=== PATIENT | female | born 1950 | race Caucasian/White ===

== ENCOUNTER 2024-10-27 21:32 | Emergency (ER) | payer MEDICARE, SELFPAY ==
--- OUTSIDE RECORDS SUMMARY | 2024-10-27 21:34 | XMS_ITS | Clinical Summary ---
Author Organization [facility] Address [facility] [place] [address] Care Team Providers Care Insurance Account Assistant Name Role Phone Antoinette Salter DO Primary Care Provider Allergies Active Allergy Reactions Criticality Noted Date Comments Epinephrine 01/01/2007 changes heart beat Medications MULTIPLE VITAMIN ESSENTIAL ORAL TAB 1 tab daily ? 0 09/07/19 04 Active calcium-minerals -R2-B0-btevyrr 200 mg-200 unit -16 mcg tab Take by mouth. Act sandeep acetaminophen SR (Tylenol Arthritis Pain) 650 mg Extended-Release tablet Take 650 mg by mouth every 8 hours if needed. Max acetaminophen dose: 4000mg in 24 hrs. Active Biotin 1 mg tablet Take by mouth. Activ e glucosam-chondro itin-diet cb25 116-100 mg cap Take by mouth. Active atorvastatin (Lipitor) 40 mg tabletIndication s:Mixed dyslipidemia Take 1 Tablet (40 mg) by mouth at bedtime. 100 Tablet 3 06/05/19 25 Active Cpttk-4-XES-EPA- Fish Oil (Fish OiL) 1,200 (144-216) mg capsule Take by mouth. Activ e blood sugar diagnostic (Blood Glucose Test) stripIndications :Type 2 diabetes mellitus without complication, without long-term current use of insulin (HC) Test 1 times per day. Contour 100 Each 12 09/16/19 25 Active blood-glucose meterIndications :Type 2 diabetes mellitus without complication, without long-term current use of insulin (HC) Dispense meter covered by pts insurance. Contour 1 Each 09/14/19 25 Active blood sugar diagnostic (Blood Glucose Test) stripIndications :Type 2 diabetes mellitus without complication, without long-term current use of insulin (HC) Test 1 times per day. 100 Each 09/14/19 25 Active lancetsIndicatio ns:Type 2 diabetes mellitus without complication, without long-term current use of insulin (HC) As directed. Test 1 times per day. 100 Each 3 09/14/19 Active Active Problems Problem Noted Date Diagnosed Date Class 2 severe obesity with serious comorbidity and body mass index (BMI) of 36.0 to 36.9 in adult 06/08/2024 Overview (06/08/2024): Comorbidities: dyslipidemia, type 2 diabetes, osteoarthritis left knee Mixed dyslipidemia 06/04/2024 Overview (06/04/2024): ASCVD 10 year risk 13.2%. Type 2 diabetes mellitus wit hout complication, without long-term current use of insulin 06/04/2024 Closed compression fracture of first lumbar vert ebra 03/14/2024 Overview (03/14/2024): February 2024: found on X-ray, possibly from Oct 2023 fall, but not certain on timing of onset. Primary osteoarthritis of right knee 05/05/2019 Primary osteoarthritis of left knee 05/05/2019 ASCUS with positive high risk HPV cervical 06/29 Overview (06/19/2023): 06/2016 ASCUS/HPV+ (65 yo) 07/2016 Leary suggestive of CADEN I 09/2018 NIL/HPV+ 08/2020 UNS/HPV 16+, HPV 18 negative 09/2020 Leary: Suggestive of CADEN I 05/2023 NIL/HPV Negative Plan: Pap/HPV testing due in 3 years Hyperopia of both eyes with astigmatism and pres byopia 06/03/2016 Nuclear senile cataract of both eyes 06/03/2016 Anatomical narrow angle borderline glaucoma 03/31 Resolved Problems Problem Noted Date Diagnosed Date Resolved Date Tear of medial meniscus of r ight knee, current 10/07/2018 05/14/2023 Impaired fasting glucose 09/11/200712/2018 Obesity, unspecified 08/21/2007 024 Unspecified hypertrophic and atrophic condition of skin 04/10/2006 04/10/2006 Overview (04/10/2006): on heels HYPERTROPHIC HEEL SKIN 04/10/200610/07 PLANTAR FASCIITIS 11/28/2004 12/09/2008 FX CLOSED METATARSAL 04/22/2000 006 SINUSITIS, ACUTE MAXILLARY 0 08/03/2004 Encounters Date Type Department Care Team Description 10/11/2024 10:40 AM CDT Ancillary Procedure [facility] [address] [place] [address] 10/11/2024 Travel 10/08/2024 Travel 09/13/2024 Refill [facility] [address] [place] [address] Antoinette Salter DO Refill Request (blood sugar diagnostic (Blood Glucose Test) strip) from Last 3 Months Immunizations Immunization Administration Dates Next Due COVID-19 vaccine (Moderna Ronaldo rayo 50mcg/0.25mL) PF, MDV 08/29/2021 COVID-19 vaccine (Pfizer-BioNTech 30mcg/0.3mL) P F, MDV 06/27/2020,06/06/2020 Influenza, High-dose Quadrivalent Inactivated ,02/15/2020 Influenza, IIV4 01/21/2019 Influenza, Inactivated IIV3 (Age 65+ Years) Preserv Free 06/03/2024 Pneumococcal Poly,23-Valent (Pneumovax) 08/23/19 21 Pneumococcal conj 13-Valent (Prevnar 13) 019 Td, Preservative Free (age >= 7 Years) 6 Tdap 07/09/2016 Family History Medical History Relation Name Comments No Known Problems Brother Fredis Cancer Father Bone Heart Disease Father [place] - passed aw ay 74 No Known Problems Half-Sister Kim Cancer-breast Maternal Aunt Diabetes Maternal Grandfather Parkinsonism Maternal Grandmother COPD Mother Cataracts Mother Diabetes Mother Glaucoma Mother Heart Disease Paternal Grandfather Cancer-ovarian Paternal Grandmother Parkinsonism Sister Ruma No Known Problems Son Robbie Relation Name Status Comments Brother Fredis Alive Father Half-Sister Kim Alive Maternal Aunt Maternal Grandfather Maternal Grandmother Mother Paternal Grandfather Paternal Grandmother Sister Ruma Alive Son Robbie Alive Social History Tobacco Use Types Packs/Day Years Used Date Smoking Tobacco: Never Passive Smoke Exposure: Never Smokeless Tobacco: Never Tobacco Cessation:Counseling Given: Yes Alcohol Use Standard Drinks/Week Comments Yes 0 (1 standard drink = 0.6 oz pur e alcohol) A beer a week, maybe PHQ-2 Answer Date Recorded PHQ-2 TOTAL SCORE 0 06/03/2024 Social Connections Answer Date Recorded Do you often feel lonely or isolated from those around you? 0 06/10/2023 Financial Resource Strain Answer Date R ecorded Difficulty of Paying Living Expenses 3 06/10/2023 Difficulty of Paying Living Expenses Not on file 06/10/2023 Food Insecurity Answer Date Recorded Do you worry your food will run out before you are able to buy more? 1 06/10/2023 Transportation Needs Answer Date Record ed Does lack of transportation keep you from medica l appointments? 1 06/10/2023 Does lack of transportation keep you from work, meetings or getting things that you need? 1 06/10/2023 Housing Stability Answer Date Recorded What is your housing situation today? 1 06/10/2023 Interpersonal Safety Answer Date Record ed Are you being hit, kicked, p ushed or yelled at (see row info)? No 11/15/2023 Interpersonal Safety Abuse 12 - 18 Not on file 11/15/2023 Interpersonal Safety Ambulatory Vulnerability No t on file 11/15/2023 Utilities Answer Date Recorded Do you have trouble paying f or utilities (for example, heat, electricity, water, phone)? 1 06/10/2023 Comments No Sex and Gender Information Value Date Recorded Sex Assigned at Not on file Legal Sex Female 5:24 AM FINANCIAL REPORTING CONSULTANT Gender Identity Not on file Sexual Orientation Not on file Occupation Industry Job Start Date Job End Date Retired Not on file Not on file Not on file Obstetrics History Para Term AB IAB SAB Ectopic Multiple Livin g Live Births 1 1 0 1 0 0 0 0 0 1 Date Outcome GA Total Labor Labor/2nd/3rd Weight Sex Type Anes PTL Shira A1 A5 Name Clin 1968 33w0 d M Vag Robbie Last Filed Vital Signs Vital Sign Reading Time Taken Comments Blood Pressure 128/78 06/10/2024 1:03 PM CDT Pulse 66 06/10/2024 1:03 PM CDT Temperature 36.6 C (97.9 F) 11/15/2023 11:08 AM CDT Respiratory Rate 20 11/15/2023 11:08 AM CDT Oxygen Saturation 95% 06/10/2024 1:03 PM CDT Inhaled Oxygen Concentration - - Weight 96.2 kg (212 lb 1.6 oz) 06/10/2024 1:03 P M CDT Height 161.9 cm (5' 3.75) 06/03/2024 10:[address] Body Mass Index 36.69 06/03/2024 10:24 AM FINANCIAL REPORTING CONSULTANT Plan of Treatment Health Maintenance Due Date Last Done Comments Zoster (shingles) series for age 50+ (1 of 2) 2002 RSV vaccine for adults or (1 - Risk 60-74 years 1-dose series) 2012 COVID-19 vaccine series ( season) 2023 08/29/2021, 04/18/2021, 06/27/2020, Additional history exists Influenza Vaccine (#1) 2024 06/03/2024, 2018 BMI (ht and wt on same day) for age 18+ 06/03/2025 06/03/2024, 05/14/2023, 08/29/2021, Additional history exists Medicare Wellness for age 65+ 06/04/2025 06/03/2024, 05/14/2023, 08/29/2021, Additional history exists Depression screening for age 12+ 06/10/2025 06/10/2024, 06/04/2024, 06/03/2024, Additional history exists Mammogram for age 45-75 10/11/2025 10/12/19 25, 10/09/2023, 10/07/2022, Additional history exists Fecal testing sDNA-FIT (Cologuard) for age 45-75 06/10/2026 06/11/2023 Tetanus booster 07/09/2026 07/09/2016, 01/17/2006 Lipids for age 45-75 06/03/2029 06/03/2024, 05/14/2023, 05/14/2023, Additional history exists Pneumococcal series for age 50+ Completed 08/22/2020, 10/07/2018 Hepatitis C screening for age 18-79 Completed 05/14/2023 DEXA/DXA scan for age 65+ Completed 10/09/2023, 11/2020 Hepatitis B series for 19+ Aged Out N o longer eligible based on patient's age to complete this topic Procedures Procedure Name Priority Date/Time Associated Diagnosis Comments XR MAMMO KM BILAT SCREEN Routine 10/11/2024 10:45 AM CDT Visit for screening mammogram LIPID PANEL W REFLEX MEASURED LDL Routine 06/03/2024 11:07 AM FINANCIAL REPORTING CONSULTANT Hypertriglyceridemi a XR DXA BONE DENSITY 2 SITES AXIAL Routine 10/09/2023 9:47 AM CDT Menopause SDNA-FIT EXTERNAL (COLOGUARD) Routine 06/11/2023 8:00 AM CDT Screen for colon cancer ANTI HCV Routine 05/14/2023 9:47 AM FINANCIAL REPORTING CONSULTANT Need for hepatitis C screening test from Last 3 Months or Most Recently Relevant to Health Maintenance Results * XR MAMMO KM BILAT SCREEN (10/11/2024 10:45 AM CDT) Anatomical Region Laterality Modality BREASTS, Breast Left, Breast Right Bilateral Mammography Impressions 10/11/2024 3:50 PM CDT There is no radiographic evidence for malignancy. Recommend annual mammograms. MAMMOGRAM ASSESSMENT: ACR 1 Negative PATIENTS: You will also receive a letter with your examination results in an easy to read format. If you have questions about your results, please contact your referring provider. Narrative 10/11/2024 3:50 PM CDT For Patients: As a result of the Century Cures Act, medical imaging exams and procedure reports are released immediately into your electronic medical record. You may view this report before your referring provider. If you have questions, please contact your health care provider. XR MAMMO KM BILAT SCREEN [[id number]] CLINICAL HISTORY: This is an asymptomatic 73 y.o. patient. INDICATION FOR EXAM: Mammogram Screening. TECHNIQUE: CC and MLO views were obtained. This study was evaluated with the assistance of Computer-Aided Detection. Breast Tomosynthesis was used in interpretation. COMPARISON FILM: Yes 10/09/23 [facility] 10/07/22 [facility] FINDINGS: There are scattered areas of fibroglandular density. There are no dominant masses, suspicious micro calcifications or areas of architectural distortion. us Antoinette Abrams Joie DO MAMMO Final Resul t * (ABNORMAL) LIPID PANEL W REFLEX MEASURED LDL (06/03/2024 11:07 AM FINANCIAL REPORTING CONSULTANT) CHOLESTEROL, TOTAL 288(H) <200 mg/dL [facility] [place] HDL CHOLESTEROL 56 > OR = 50 mg/dL [facility] [place] TRIGLYCERIDES 358(H) <150 mg/dL [facility] [place] Comment: If a non-fasting specimen was collected, consider repeat triglyceride testing on a fasting specimen if clinically indicated. Goddard et al. J. of Clin. Lipidol. 2015;9:129-169. LDL-CHOLESTEROL 171(H) mg/dL (calc) [facility] [place] Comment: Reference range: <100 Desirable range <100 mg/dL for primary prevention; <70 mg/dL for patients with CHD or diabetic patients with > or = 2 CHD risk factors. LDL-C is now calculated using the Arpit-Cynthia calculation, which is a validated novel method providing better accuracy than the Friedewald equation in the estimation of LDL-C. Arpit BARRERA et al. SHELDON. 2013;310(19): 5585-6300 (http://education.[employer]/faq/XMD868) CHOL/HDLC RATIO 5.1(H) <5.0 (calc) [facility] [place] NON HDL CHOLESTEROL 232(H) <130 mg/dL (calc) [facility] [place] Comment: Non-HDL level > or = 220 is very high and may indicate genetic familial hypercholesterolemia (FH). Clinical assessment and measurement of blood lipid levels should be considered for all first-degree relatives of patients with an FH diagnosis. For patients with diabetes plus 1 major ASCVD risk factor, treating to a non-HDL-C goal of <100 mg/dL (LDL-C of <70 mg/dL) is considered a therapeutic option. Blood BLOOD SPECIMEN / Unknown 06/03/2024 11:07 AM FINANCIAL REPORTING CONSULTANT 06/03/2024 11:08 AM FINANCIAL REPORTING CONSULTANT Antoinette Sue Joie DO CHEMISTRY Final Resul t [facility] [address] [place] [address], [facility] [address] [place] [address] * (ABNORMAL) XR DXA BONE DENSITY 2 SITES AXIAL (10/09/2023 9:47 AM CDT) Anatomical Region Laterality Modality Spine, HIPS, HIPL, HIPR Other Addenda Addendum by Shameka Berman PA on 10/21/2023 9:57 AM CDT Impressions 10/14/2023 2:04 PM CDT Osteopenia. RECOMMENDATIONS: The National Osteoporosis Foundation recommends pharmacologic treatment for patients with T-scores of -2.5 or less, patients with prior history of fragility fractures, or patients with 10-year probability of greater than 3% at hips or greater than 20% of suffering major osteoporotic fractures. Recommend continued optimization of calcium and vitamin D intake through dietary means and/or supplementation and regular exercise. Repeat scan recommended in 3-5 years. Shameka Bemran PA-C [facility] 10/14/2023 Narrative 10/14/2023 2:04 PM CDT For Patients: Results are automatically released to your [employer]) account once available, in compliance with federal regulations. This means that you may see your results before your provider has had a chance to review them. Please allow 2-3 business days for your provider to comment on the results. XR DXA Bone Mineral Density (BMD) EXAM LOCATION: [facility] [address] [facility] [address] PATIENT NAME: Josie Kumari DATE OF : 1950 EXAM DATE: 10/09/2023 REQUESTING PROVIDER: Catina Duenas MD GENDER AT : female HEIGHT: 5' 4.37 (05/14/2023) WEIGHT: 217 lb 11.2 oz (06/10/2023) MENOPAUSAL STATUS: Postmenopausal RACE/ETHNICITY: White RISK FACTORS: White Race CURRENT MEDICATION FOR BONE LOSS: NONE INDICATION: Follow-up of existing osteopenia and Post-Menopause COMPARISON DATE(S): None DXA scans are compared to prior studies for a patient only when the two (or more) studies were performed on the same scanner. It is not possible to compare data generated on one scanner to data from another because there are not standards in DXA equipment. This applies even if the two scanners are made by the same learn to swim instructor. PROCEDURE: Dual-energy x-ray absorptiometry performed with routine technique. Reporting is completed in the form of a T-score. The T-score represents the standard deviation from peak bone mass based on young healthy adult. A Z-score is used for diagnosis in premenopausal women, and for men under the age of 50. FINDINGS: RESULT LUMBAR SPINE L1 - L4 (L3) BMD: 1.067 g/cm2 T-Score: - 1.0 Z-Score: - 0.4 Change from prior: None RESULTS FEMUR Left femoral neck BMD: 0.755 g/cm2 T-Score: - 2.0 Z-Score: - 1.0 Change from prior: None Right femoral neck BMD: 0.791 g/cm2 T-Score: - 1.8 Z-Score: - .08 Change from prior: None Left hip BMD: 0.867 g/cm2 T-Score: - 1.1 Z-Score: - 0.4 Change from prior: None Right hip BMD: 0.848 g/cm2 T-Score: - 1.3 Z-Score: - 0.6 Change from prior: None WHO criteria: Normal: T-score at or above -1 SD Osteopenia: T-score between -1.1 and -2.4 SD Osteoporosis: T-score at or below -2.5 SD FRAX RISK CALCULATION (USED FOR OSTEOPENIA ONLY): 10-year probability of major osteoporotic fracture: 11.2%. 10-year probability of hip fracture: 2.2%. Catina Duenas MD DEXA Edited Result - Final * SDNA-FIT EXTERNAL (COLOGUARD) (06/11/2023 8:00 AM CDT) NONINV COLON CA DNA+OCC BLD SCRN STL-IMP Negative Negative 06/17/2023 8:40 PM CDT [facility] (CLIA #:[id number]) Comment: NEGATIVE TEST RESULT. A negative Cologuard result indicates a low likelihood that a colorectal cancer (CRC) or advanced adenoma (adenomatous polyps with more advanced pre-malignant features) is present. The chance that a person with a negative Cologuard test has a colorectal cancer is less than 1 in 1500 (negative predictive value >99.9%) or has an advanced adenoma is less than 5.3% (negative predictive value 94.7%). These data are based on a prospective cross-sectional study of 10,000 individuals at average risk for colorectal cancer who were screened with both Cologuard and colonoscopy. (Anabel Moraes. et al, N Engl J Med 2014;370(14):4900-9328) The normal value (reference range) for this assay is negative. COLOGUARD RE-SCREENING RECOMMENDATION: Periodic colorectal cancer screening is an important part of preventive healthcare for asymptomatic individuals at average risk for colorectal cancer. Following a negative Cologuard result, the [place] [employer] Society and U.S. Multi-Society Task Force screening guidelines recommend a Cologuard re-screening interval of 3 years. References: [place] [employer] Guideline for Colorectal Cancer Screening: https://www.cancer.org/cancer/jixds-iwhyxs-penjew/ybydrhepq-smjjemimx-jhzhpxq/ac s-rec ommendations.html.; Casper BUSTAMANTE, Joe VILLA, Brittany TalamantesK, Colorectal Cancer Screening: Recommendations for Physicians and Patients from the U.S. Multi-Society Task Force on Colorectal Cancer Screening , Am J Gastroenterology 2017; 112:8895-5191. TEST DESCRIPTION: Composite algorithmic analysis of stool DNA-biomarkers with hemoglobin immunoassay. Quantitative values of individual biomarkers are not reportable and are not associated with individual biomarker result reference ranges. Cologuard is intended for colorectal cancer screening of adults of either sex, 45 years or older, who are at average-risk for colorectal cancer (CRC). Cologuard has been approved for use by the U.S. FDA. The performance of Cologuard was established in a cross sectional study of average-risk adults aged 50-84. Cologuard performance in patients ages 45 to 49 years was estimated by sub-group analysis of near-age groups. Colonoscopies performed for a positive result may find as the most clinically significant lesion: colorectal cancer [4.0%], advanced adenoma (including sessile serrated polyps greater than or equal to 1cm diameter) [20%] or non- advanced adenoma [31%]; or no colorectal neoplasia [45%]. These estimates are derived from a prospective cross-sectional screening study of 10,000 individuals at average risk for colorectal cancer who were screened with both Cologuard and colonoscopy. (Anabel Perdomo et al, N Engl J Med 2014;370(14):9506-3461.) Cologuard may produce a false negative or false positive result (no colorectal cancer or precancerous polyp present at colonoscopy follow up). A negative Cologuard test result does not guarantee the absence of CRC or advanced adenoma (pre-cancer). The current Cologuard screening interval is every 3 years. ([place] [employer] and U.S. Multi-Society Task Force). Cologuard performance data in a 10,000 patient pivotal study using colonoscopy as the reference method can be accessed at the following location: www.[employer]/results. Additional description of the Cologuard test process, warnings and precautions can be found at www.[employer].com. Stool specimen (specimen) ([facility]) 06/11/2023 8:00 AM CDT 06/12/2023 12:22 PM CDT us Catina Duneas MD URINE Final R esult [facility] (CLIA #:[id number]) [place] [address], * ANTI HCV (05/14/2023 9:47 AM FINANCIAL REPORTING CONSULTANT) HEPATITIS C ANTIBODY Non-Reacti ve Non-React sandeep 05/14/2023 5:15 PM FINANCIAL REPORTING CONSULTANT [facility] Comment:Please note, per www .CDC.gov: If a patient is known to be at high risk of HCV infection, or is symptomatic, and the physician's suspicion of HCV infection is high, HCV RNA testing is often employed and is of diagnostic value, even after an initial negative anti-HCV test result. Blood BLOOD SPECIMEN / Unknown Butterfly / Unknown 05/14/2023 9:47 AM FINANCIAL REPORTING CONSULTANT 05/14/2023 9:47 AM FINANCIAL REPORTING CONSULTANT us Catina Duenas MD SEND OUTS Final R esult [facility] [address] [place] [address], from Last 3 Months or Most Recently Relevant to Health Maintenance Insurance [employer] MEDICARE ADV[employer]AGE [facility] Advance Directives Documents on File Type Date Recorded Patient Slitter Scorer Expl anation Healthcare Directive 12/17/2022 023 Care Teams Insurance Account Assistant Relationship Specialty Start [place] [address] [address] [id number] PCP - General Family Practice 04/08/24
[2024-10-27 21:39] VITALS: BP 186/86; PULSE 68; RESP 20; TEMP 36; O2SAT 97; BMI 35.4
[2024-10-27 22:32] LABS: Appearance Urine Clear (Clear)
--- NOTE | 2024-10-27 23:47 | ED.GENADULT ---
HPI - General Adult General Chief complaint: Flank Pain Stated complaint: kidney stone Time Seen by Provider: 10/27/24 23:46 History of Present Illness HPI narrative: Arrives with left flank pain that started earlier this evening, as well as dysuria that began earlier today as well. History of kidney stones, alert and oriented, ABCs intact. 73-year-old woman presenting to the emergency department with concern of flank area pain on the left beginning this evening. Sharp and intense. No fever. No trauma. She does have a history of nephrolithiasis but it has been some years; maybe 5 years ago. Sense of dysuria earlier this morning. Has been focused on hydration. Pain has escalated over the course the day intense squeezing sharp pain in the left flank Related Data Previous Rx's ?Medication ?Instructions ?Recorded tamsulosin 0.4 mg capsule (Flomax) 0.4 mg PO DAILY #15 caps 10/28/24 Allergies Allergy/AdvReac Type Severity Reaction Status Date / Time No Known Drug Allergies Allergy Verified 10/27/24 21:39 Review of Systems Status of ROS: Reports: 6 or more systems reviewed and unremarkable except as noted in History and below PFSH PFSH Social History Smoking Status: Never smoker How often do you have a drink containing alcohol: never AUDIT-C Alcohol total score: 0 Non-prescribed substance use: denies use Exam Narrative: Exam Narrative: Seated on the bed left leg bent. She is leaning forward. Notes that this is a comfortable position for her at the moment. Sore to percussion in the left flank somewhat. Abdomen appears to mostly be nontender. She is well-perfused peripherally. Heart in regular rate. Const: Vital Signs, click to edit/add: Vital Signs - 24 hr 10/27/24 21:39 10/28/24 00:24 Temperature 96.8 F L 98.9 F Pulse Rate [Pulse Oximeter] 68 60 Respiratory Rate 20 18 Blood Pressure [Ri ght Upper Arm] 186/86 H 180/88 H Pulse Oximetry 97 98 Oxygen Delivery Me thod Room Air Room Air Documenting provider has reviewed patient's vital signs: yes Course Vital Signs Vital signs: Initial Vital Signs Temperature 96.8 F L 10/27/24 21:39 Temperature Source Temporal Artery Scan 10/27/24 21:39 Pulse Rate 68 07/30/25 21:39 Respiratory Rate 20 10/27/24 21:39 Blood Pressure 186/86 H 10/27/24 21:39 Blood Pressure Mean 119 H 10/27/24 21:39 Pulse Oximetry 97 10/27/24 21:39 Oxygen Delivery Method Room Air 10/27/24 21:39 Vital Signs Temperature 96.8 F L 10/27/24 21:39 Pulse Rate 68 10/27/24 21:39 Respiratory Rate 20 10/27/24 21:39 Blood Pressure 186/86 H 10/27/24 21:39 Pulse Oximetry 97 10/27/24 21:39 Oxygen Delivery Method Room Air 10/27/24 21:39 Temperature 98.9 F 10/28/24 00:24 Pulse Rate 60 10/28/24 00:24 Respiratory Rate 18 10/28/24 00:24 Blood Pressure 180/88 H 10/28/24 00:24 Pulse Oximetry 98 10/28/24 00:24 Oxygen Delivery Method Room Air 10/28/24 00:24 Medications Administered Medications: Discontinued Medications Generic Name Dose Route Start Last Admin Trade Name Freq PRN Reason Stop Dose Admin Sodium Chloride 1,000 mls @ 1,000 mls/hr 10/27/24 23:53 10/28/24 01:30 0.9 % Sodium Chloride 1000 Ml IV 10/28/24 00:52 Infused .Q1H ONE Infusion Ketorolac Tromethamine 30 mg 10/27/24 23:53 10/28/24 00:06 Ketorolac 30 Mg/Ml Inj IVP 10/27/24 23:54 30 mg ONCE ONE Administration Morphine Sulfate 4 mg 10/27/24 23:53 10/28/24 00:23 Morphine 4 Mg/Ml Inj IVP 10/27/24 23:54 Not Given ONCE ONE Tamsulosin HCl 0.4 mg 10/28/24 00:51 10/28/24 00:58 Tamsulosin Hcl 0.4 Mg Capsule PO 10/28/24 00:52 0.4 mg ONCE ONE Administration Medical Decision Making MDM Narrative Medical decision making narrative: She would appreciate some pain medication. Symptoms do seem consistent with ureteral stone and colic and I would think that this is leading in differential considering her history as well. We will look for evidence of infection, particularly in the urine. Check renal function. As it has been sometime since she has experienced a stone and had imaging, I think I would image well. IV is established. Receives IV fluid and ketorolac and morphine for more immediate relief. Labs are generally reassuring with mildly elevated white count. 3+ blood on dip on urine but otherwise no evidence of infection. CT scan independently reviewed by me I thought was with a 2-3 mm stone but in hindsight this probably was more artifact in the left distal ureter but can certainly appreciate a 4 mm maybe 5 mm stone at the left UVJ. Radiology over-read confirmed as below INDICATION: Left flank pain, history of kidney stones TECHNIQUE: CT Abdomen and pelvis without i.v. contrast. Coronal and sagittal reformats were obtained. COMPARISON: 12/31/2019 FINDINGS: Lower chest: Unremarkable. Liver: Hepatomegaly is present measuring 22 cm without significant interval change. Spleen: Unremarkable. Pancreas: Unremarkable. Gallbladder: Unremarkable. Kidney: There is a 4 mm stone at the left ureterovesicular junction (UVJ) causing mild hydroureter and renal pelviectasis. Adrenal: Unremarkable. Bowel: Small sliding type esophageal hiatal hernia (type I) is present. There is a large calcific density measuring 2 cm along the left aspect of the rectum without interval change. Previous appendectomy noted with no significant appendiceal stump identified. Vascular: Unremarkable. Lymph: Unremarkable. Peritoneum: Unremarkable. No pneumoperitoneum is seen. No significant ascites is noted. Pelvis: A right ovarian dermoid is present measuring 5.5 x 5 cm without interval change. Soft tissue: Unremarkable. Bone: Interval development of a chronic severe compression deformity is seen along the superior endplate of L1. IMPRESSION: 1. There is a 4 mm stone at the left ureterovesicular junction (UVJ) causing mild hydroureter and renal pelviectasis. Dictated by Vik Gotti MD @ 10/28/2024 12:35:49 AM Please note that all CT scans at this facility use dose modulation, iterative reconstruction, and/or weight-based dosing when appropriate to reduce radiation dose to as low as reasonably achievable. Dictated by: Vik Gotti MD @ 10/28/2024 00:36:16 Medications have been helpful. Overall much more comfortable. Given Flomax. I think can be discharged to medication management. See patient discharge plan for further discussion Stay well-hydrated. Consider straining your urine over this next week. I'm sending in a prescription of Flomax, also known as tamsulosin, to the pharmacy for you. This can help with ureteral spasm. Take this until you think the stone has passed. Percocet from [facility]. Each tablet of Percocet contains 325 mg of acetaminophen and 5 mg of oxycodone. Can take up to 800 mg of ibuprofen per dose. Be seen for pain lasting more than 5 days, uncontrolled pain or development of fever. Medical Records Medical records reviewed: Yes I reviewed the patient's medical records Lab Data Lab results reviewed: Yes I reviewed the patient's lab results Labs: Lab Results 10/27/24 10/27/24 Range/Units 00:09 Unknown WBC 11.71 H (4.50-11.00) K/uL RBC 5.10 (4.00-5.20) m/uL Hgb 14.9 (12.0-16.0) gm/dL Hct 44.7 (33.0-51.0) % MCV 88 (80-100) fL MCH 29 (26-34) pg MCHC 33 (32-36) gm/dL RDW Coeff of Bruce 12.7 (11.5-15.5) % Plt Count 340 (140-440) K/uL Neut % (Auto) 57.5 (42.0-72.0) % Lymph % (Auto) 36.2 (20-44) % Kaufman % (Auto) 5.0 (0.0-11.0) % Eos % (Auto) 0.6 (0.0-7.0) % Baso % (Auto) 0.4 (0.0-3.0) % Neut # (Auto) 6.70 (1.7-7.0) K/uL Lymph # (Auto) 4.20 H (0.90-2.90) K/uL Kaufman # (Auto) 0.60 (0.00-0.90) K/UL Eos # (Auto) 0.10 (0.00-0.50) K/uL Baso # (Auto) 0.00 (0.00-0.30) K/uL Abs Immat Gran (auto) 0.00 (0.00-0.30) K/uL Imm/Tot Granulo (auto) 0.3 % Sodium 134 L (135-149) mmol/L Potassium 4.6 (3.6-5.1) mmol/L Chloride 97 (96-114) mmol/L Carbon Dioxide 27 (20-32) mmol/L Anion Gap 10 (7-15) mEq/L BUN 24 (7-30) mg/dL Creatinine 0.7 (0.5-1.5) mg/dL Estimated Creat Clear 44.56 Estimated GFR 92 ml/min Glucose 147 H (60-115) mg/dL Calcium 9.5 (8.4-10.6) mg/dL Urine Color Yellow (Yellow) Urine Appearance Clear (Clear) Urine pH 6.0 (5.0-8.5) Ur Specific [place] 1.010 (1.000-1.030) Urine Protein Negative (Negative) Urine Glucose (UA) Negative (Negative) Urine Ketones Negative (Negative) Urine Blood 3+ A (Negative) Urine Nitrite Negative (Negative) Urine Bilirubin Negative (Negative) Urine Urobilinogen 0.2 (0.2-1.0) Ur Leukocyte Esterase Negative (Negative) Urine RBC 0-2 (0-2) Urine WBC 0-2 (0-5) Ur Squamous Epith Cells Few (None-Few) Urine Bacteria Few A (None) Discharge Plan Discharge Clinical Impression: Left ureteral stone, Ureteral colic Patient Disposition: Home w/ Parent or Adult Condition: Improved Additional Instructions: Stay well-hydrated. Consider straining your urine over this next week. I'm sending in a prescription of Flomax, also known as tamsulosin, to the pharmacy for you. This can help with ureteral spasm. Take this until you think the stone has passed. Percocet from [facility]. Each tablet of Percocet contains 325 mg of acetaminophen and 5 mg of oxycodone. Can take up to 800 mg of ibuprofen per dose. Be seen for pain lasting more than 5 days, uncontrolled pain or development of fever. Prescriptions: New tamsulosin [Flomax] 0.4 mg capsule 0.4 mg PO DAILY Qty: 15 0RF Follow Up/Referrals: Provider,Not a Local [Primary Care Provider, Family Practice] Stand Alone Forms: [employer] Info Instructions
--- NOTE | 2024-10-28 | CRLHL7_ITS ---
For Patients: As a result of the Cures Act, medical imaging exams and procedure reports are released immediately into your electronic medical record. You may view this report before your referring provider. If you have questions, please contact your health care provider. INDICATION: Left flank pain, history of kidney stones TECHNIQUE: CT Abdomen and pelvis without i.v. contrast. Coronal and sagittal reformats were obtained. COMPARISON: 12/31/2019 FINDINGS: Lower chest: Unremarkable. Liver: Hepatomegaly is present measuring 22 cm without significant interval change. Spleen: Unremarkable. Pancreas: Unremarkable. Gallbladder: Unremarkable. Kidney: There is a 4 mm stone at the left ureterovesicular junction (UVJ) causing mild hydroureter and renal pelviectasis. Adrenal: Unremarkable. Bowel: Small sliding type esophageal hiatal hernia (type I) is present. There is a large calcific density measuring 2 cm along the left aspect of the rectum without interval change. Previous appendectomy noted with no significant appendiceal stump identified. Vascular: Unremarkable. Lymph: Unremarkable. Peritoneum: Unremarkable. No pneumoperitoneum is seen. No significant ascites is noted. Pelvis: A right ovarian dermoid is present measuring 5.5 x 5 cm without interval change. Soft tissue: Unremarkable. Bone: Interval development of a chronic severe compression deformity is seen along the superior endplate of L1. IMPRESSION: 1. There is a 4 mm stone at the left ureterovesicular junction (UVJ) causing mild hydroureter and renal pelviectasis. Dictated by Vik Gotti MD @ 10/28/2024 12:35:49 AM Please note that all CT scans at this facility use dose modulation, iterative reconstruction, and/or weight-based dosing when appropriate to reduce radiation dose to as low as reasonably achievable. Dictated by: Vik Gotti MD @ 10/28/2024 00:36:16 (Electronically Signed)
--- OUTSIDE RECORDS SUMMARY | 2024-10-28 00:03 | XMS_ITS | Clinical Summary ---
Author Organization [facility] Address [facility] [place] [address] Care Team Providers Care Marine Painter Name Role Phone Antoinette Salter DO Primary Care Provider Allergies Active Allergy Reactions Criticality Noted Date Comments Epinephrine 01/01/2007 changes heart beat Medications MULTIPLE VITAMIN ESSENTIAL ORAL TAB 1 tab daily ? 0 09/07/19 04 Active calcium-minerals -[id number]-U6-kjgdyau 200 mg-200 unit -16 mcg tab Take [...] bedtime. 100 Tablet 3 06/05/19 25 Active Qzgep-1-BNH-EPA- Fish Oil (Fish OiL) 1,200 (144-216) mg [...] Overview (06/19/2023): 06/2016 ASCUS/HPV+ (65 yo) 07/2016 Ismay suggestive of CADEN I 09/2018 NIL/HPV+ 08/2020 UNS/HPV 16+, HPV 18 negative 09/2020 Ismay: Suggestive of CADEN I 05/2023 NIL/HPV Negative [...] Description 10/11/2024 10:40 AM CDT Ancillary Procedure [facility] [address] [place] [address] 10/11/2024 Travel 10/08/2024 Travel 09/13/[address] [facility] [address] [place] [address] Antoinette Salter DO Refill Request (blood sugar [...] Fredis Cancer Father Bone Heart Disease Father [place] - passed aw ay 74 No Known [...] on file Legal Sex Female 5:24 AM GRAIN COMBINER Gender Identity Not on file Sexual Orientation [...] Body Mass Index 36.69 06/03/2024 10:24 AM GRAIN COMBINER Plan of Treatment Health Maintenance Due Date [...] REFLEX MEASURED LDL Routine 06/03/2024 11:07 AM GRAIN COMBINER Hypertriglyceridemi a XR DXA BONE DENSITY 2 SITES AXIAL Routine 10/09/2023 9:47 AM CDT Menopause SDNA-FIT EXTERNAL (COLOGUARD) Routine 06/11/2023 8:00 AM CDT Screen for colon cancer ANTI HCV Routine 05/14/2023 9:47 AM GRAIN COMBINER Need for hepatitis C screening test from [...] care provider. XR MAMMO KM BILAT SCREEN [[id number]] CLINICAL HISTORY: This is an asymptomatic 73 [...] W REFLEX MEASURED LDL (06/03/2024 11:07 AM GRAIN COMBINER) CHOLESTEROL, TOTAL 288(H) <200 mg/dL [place] HDL CHOLESTEROL 56 > OR = 50 mg/dL [facility] TRIGLYCERIDES 358(H) <150 mg/dL [facility] Comment: If a non-fasting specimen was collected, consider repeat triglyceride testing on a fasting specimen if clinically indicated. Goddard et al. J. of Clin. Lipidol. 2015;9:129-169. LDL-CHOLESTEROL 171(H) mg/dL (calc) [facility] Comment: Reference range: <100 Desirable range <100 mg/dL for primary prevention; <70 mg/dL for patients with CHD or diabetic patients with > or = 2 CHD risk factors. LDL-C is now calculated using the Arpit-Cynthia calculation, which is a validated novel method providing better accuracy than the Friedewald equation in the estimation of LDL-C. Arpit BARRERA et al. SHELDON. 2013;310(19): 1042-2644 (http://education.Beibamboo/faq/KFQ980) CHOL/HDLC RATIO 5.1(H) <5.0 (calc) [facility] [place] NON HDL CHOLESTEROL 232(H) <130 mg/dL (calc) [facility] Comment: Non-HDL level > or [...] BLOOD SPECIMEN / Unknown 06/03/2024 11:07 AM GRAIN COMBINER 06/03/2024 11:08 AM GRAIN COMBINER Antoinette Sue Joie DO CHEMISTRY Final Resul t [employer] [facility] [address] [place] [address], [facility] [address] [place] [address] * (ABNORMAL) XR DXA BONE DENSITY 2 [...] Repeat scan recommended in 3-5 years. Shameka Berman PA-C [employer] 10/14/2023 Narrative 10/14/2023 2:04 PM CDT For Patients: Results are automatically released to your [employer] ([employer]) account once available, in compliance with federal regulations. This means that you may see your results before your provider has had a chance to review them. Please allow 2-3 business days for your provider to comment on the results. XR DXA Bone Mineral Density (BMD) EXAM LOCATION: [facility] [address] [facility] [address] PATIENT NAME: Josie Kumari DATE OF : [...] two scanners are made by the same spine supervisor. PROCEDURE: Dual-energy x-ray absorptiometry performed with routine [...] STL-IMP Negative Negative 06/17/2023 8:40 PM CDT Occipital (CLIA #:[id number]) Comment: NEGATIVE TEST RESULT. A negative Cologuard [...] Moraes. et al, N Engl J Med 2014;370(14):0859-4513) The normal value (reference range) for this assay is negative. COLOGUARD RE-SCREENING RECOMMENDATION: Periodic colorectal cancer screening is an important part of preventive healthcare for asymptomatic individuals at average risk for colorectal cancer. Following a negative Cologuard result, the [place] Cancer Society and U.S. Multi-Society Task Force screening guidelines recommend a Cologuard re-screening interval of 3 years. References: [place] Cancer Society Guideline for Colorectal Cancer Screening: https://www.cancer.org/cancer/qckdk-mknusa-aazajl/cuplvxwjy-fuesllcky-pxtcrpu/ac s-rec ommendations.html.; Casper BUSTAMANTE, Joe VILLA, Brittany TalamantesK, Colorectal Cancer Screening: Recommendations for Physicians and Patients from the U.S. Multi-Society Task Force on Colorectal Cancer Screening , Am J Gastroenterology 2017; 112:1369-1013. TEST DESCRIPTION: Composite algorithmic analysis of stool [...] Perdomo et al, N Engl J Med 2014;370(14):9704-4676.) Cologuard may produce a false negative or false positive result (no colorectal cancer or precancerous polyp present at colonoscopy follow up). A negative Cologuard test result does not guarantee the absence of CRC or advanced adenoma (pre-cancer). The current Cologuard screening interval is every 3 years. ([place] Cancer Society and U.S. Multi-Society Task Force). Cologuard performance data in a 10,000 patient pivotal study using colonoscopy as the reference method can be accessed at the following location: www.[employer]/results. Additional description of the Cologuard test process, warnings and precautions can be found at www.Musisticrd.com. Stool specimen (specimen) (Rectum) 06/11/2023 8:00 AM CDT 06/12/2023 12:22 PM CDT us Catina Duenas MD URINE Final R esult Occipital (CLIA #:[id number]) [address] [place] [address], * ANTI HCV (05/14/2023 9:47 AM GRAIN COMBINER) HEPATITIS C ANTIBODY Non-Reacti ve Non-React sandeep 05/14/2023 5:15 PM GRAIN COMBINER [facility] Comment:Please note, per www .CDC.gov: If a patient is known to be at high risk of HCV infection, or is symptomatic, and the physician's suspicion of HCV infection is high, HCV RNA testing is often employed and is of diagnostic value, even after an initial negative anti-HCV test result. Blood BLOOD SPECIMEN / Unknown Butterfly / Unknown 05/14/2023 9:47 AM GRAIN COMBINER 05/14/2023 9:47 AM GRAIN COMBINER us Catina Duenas MD SEND OUTS Final R esult [facility] [address] [place] [address], from Last 3 Months or Most Recently Relevant to Health Maintenance Insurance [employer] MEDICARE ADVANTAGE MR [facility] Advance Directives Documents on File Type Date Recorded Patient Manager Small Business Expl anation Healthcare Directive 12/17/2022 023 Care Teams Marine Painter Relationship Specialty [place] [id number] [address] [id number] PCP - General Family Practice 04/08/24
[2024-10-28 00:24] VITALS: BP 180/88; PULSE 60; RESP 18; TEMP 37.2; O2SAT 98
[2024-10-28 00:25] LABS: Hematocrit 44.7 % (33.0-51.0); Hemoglobin* 14.9 gm/dL (12.0-16.0); Immature Granulocytes Pct Auto 0.3 %; Mean Corpuscular HGB Conc 33 gm/dL (32-36); Mean Corpuscular Hemoglobin 29 pg (26-34); Mean Corpuscular Volume 88 fL (80-100); RDW Coefficient of Variation % 12.7 % (11.5-15.5); Red Blood Count 5.10 m/uL (4.00-5.20); White Blood Count* 11.71 K/uL (4.50-11.00)
[2024-10-28 00:31] LABS: Immature Granulocytes Abs Auto 0.00 K/uL (0.00-0.30); Lymphocytes Absolute Auto 4.20 K/uL (0.90-2.90); Slide Review Reflex No
[2024-10-28 00:33] LABS: Chloride* 97 mmol/L (96-114); Sodium* 134 mmol/L (135-149)
[2024-10-28 00:34] LABS: Potassium* 4.6 mmol/L (3.6-5.1)
[2024-10-28 00:36] LABS: Blood Urea Nitrogen* 24 mg/dL (7-30); Creatinine* 0.7 mg/dL (0.5-1.5); Est. Creatinine Clearance* 44.56; Estimated Glomerular Filt Rate 92 ml/min
[2024-10-28 00:37] LABS: Anion Gap 10 mEq/L (7-15); Calcium* 9.5 mg/dL (8.4-10.6); Carbon Dioxide* 27 mmol/L (20-32); Glucose* 147 mg/dL (60-115)
[2024-10-28] MEDS: TAMSULOSIN HCL 0.4 MG CAPSULE PO (00:58)
== END 2024-10-28 01:42 | disposition home or self-care (01) ==
PROVIDERS: Emergency Provider Family Medicine
DX: N20.1 Calculus of ureter (principal); N23 Unspecified renal colic
CPT/HCPCS: 36415; 74176; 80048; 81001; 85025; 87086; 96361; 96374; 96375; 99284; A9270; J1885; J7030